=== PATIENT | male | born 1985 ===

== ENCOUNTER 2018-06-27 18:55 | Emergency (ER) | payer SELFPAY ==
[2018-06-27 19:04] VITALS: BP 132/79; PULSE 71; RESP 20; TEMP 98.2; O2SAT 99
--- NOTE | 2018-06-27 19:49 | C.PDOC ---
History Of Present Illness 32 year old male presents to the ED for evaluation after he sustained an injury to his right knee prior to arrival. Patient states he accidentally slipped on wet ground, saw he was bleeding, and rushed to the ED for evaluation. Patient states he is up-to-date with Tetanus immunization. He denies numbness, weakness or other injury. Time Seen by Provider: 06/27/18 19:38 Chief Complaint (Nursing): Abnormal Skin Integrity History Per: Patient History/Exam Limitations: no limitations Onset/Duration Of Symptoms: Hrs Current Symptoms Are (Timing): Still Present Location Of Injury: Right: Knee Quality Of Symptoms: Painful Additional History Per: Patient Past Medical History Reviewed: Historical Data, Nursing Documentation, Vital Signs Vital Signs: Last Vital Signs Temp 98.2 F 06/27/18 19:00 Pulse 71 06/27/18 19:00 Resp 20 06/27/18 19:00 BP 132/79 06/27/18 19:00 Pulse Ox 99 06/27/18 19:00 - Medical History PMH: No Chronic Diseases Surgical History: No Surg Hx Family History: States: Unknown Family Hx - Social History Hx Alcohol Use: No Hx Substance Use: No - Immunization History Hx Tetanus Toxoid Vaccination: Yes (2014) Hx Influenza Vaccination: No Hx Pneumococcal Vaccination: No Review Of Systems Skin: Positive for: Other (right knee injury ) Neurological: Negative for: Weakness, Numbness Physical Exam - Physical Exam Appears: Non-toxic, No Acute Distress Skin: Normal Color, Warm, Dry, Other (superficial punctate wound to anterior right knee with no active bleeding) Head: Atraumatic, Normacephalic Eye(s): bilateral: Normal Inspection Extremity: Normal ROM, No Tenderness, Capillary Refill (less than 2 seconds ) Neurological/Psych: Normal Speech, Normal Cognition, Normal Sensation ED Course And Treatment O2 Sat by Pulse Oximetry: 99 (on RA) Pulse Ox Interpretation: Normal Medical Decision Making Medical Decision Making: Impression: superficial wound to knee s.p fall Plan: Wound care NS and bacitracin Based on physical examination, there is no indication for laceration repair. Wound will self heal. Patient is instructed on wound care. Disposition Counseled Patient/Family Regarding: Diagnosis, Need For Followup - Disposition Disposition: HOME/ ROUTINE Disposition Time: 19:50 Condition: STABLE Additional Instructions: Keep area clean and dry. May wash gently with soap and water, do not use alcohol or iodine solution. Change dressing 1-2 times daily. Return to ER if fever occurs, redness or swelling around wound, pus in the wound. Instructions: Skin Abrasions (DC) Forms: [employer] (Macedonian) - POA Present On Arrival: Falls Or Trauma - Clinical Impression Clinical Impression: Abrasion of knee - PA / [employer]IP [employer] / Resident Statement MD/DO has reviewed & agrees with the documentation as recorded. - Scribe Statement The provider has reviewed the documentation as recorded by the Scribe (Marina Meeks) All medical record entries made by the Scribe were at my direction and personally dictated by me. I have reviewed the chart and agree that the record accurately reflects my personal performance of the history, physical exam, medical decision making, and the department course for this patient. I have also personally directed, reviewed, and agree with the discharge instructions and disposition.
[2018-06-27] MEDS ORDERED: Bacitracin 500 Units/gm Oint Foilpak UD TOP ONE (19:50)
[2018-06-27] MEDS ORDERED: Bacitracin 500 Units/gm Oint Foilpak UD ONE (19:56)
== END 2018-06-27 20:08 | disposition home or self-care (01) ==
LOC: C.ER 18:55
DX: S80.211A Abrasion, right knee, initial encounter (principal); W01.0XXA Fall on same level from slipping, tripping and stumbling without subsequent striking against object, initial encounter